=== PATIENT | male | born 1990 | race Two or more races ===

== ENCOUNTER 2025-01-07 11:35 | Emergency (ER) | payer OTHER ==
[~2025-01-07] VITALS: Ht 193 cm; Wt 90.7 kg
[2025-01-07 11:44] VITALS: BP 131/77; TEMP 97.9
[2025-01-07] MEDS ORDERED: KETO120S5 TP (12:09)
[2025-01-07] MEDS ORDERED: AMOX-430 PO (12:09)
[2025-01-07 12:17] VITALS: O2SAT 99
== END 2025-01-07 12:18 | disposition home or self-care (01) ==
LOC: ER 11:39
DX: S81.852A Open bite, left lower leg, initial encounter (principal); L21.9 Seborrheic dermatitis, unspecified; R20.2 Paresthesia of skin; Z87.820 Personal history of traumatic brain injury; W54.0XXA Bitten by dog, initial encounter; Y93.89 Activity, other specified; Y92.89 Other specified places as the place of occurrence of the external cause; Y99.8 Other external cause status